=== PATIENT | female | born 1955 | race Caucasian/White ===

== ENCOUNTER 2018-08-17 14:54 | Inpatient (IN) ==
[2018-08-17] MEDS ORDERED: PANTOPRAZOLE 40 MG VIAL IV STA (17:27)
[2018-08-17] MEDS ORDERED: SODIUM CHLORIDE 0.9% 1,000 ML IV STA (17:27)
[2018-08-17 17:53] LABS: Basophils % 0.2 % (0.0-0.8); Hemoglobin 14.1 GM/DL (12.0-16.0); Immature Granulocytes % 0.5 %; Immature Granulocytes Absolute 0.12 #; Lymphocytes # 1.2 10*3/uL (1.4-4.0); Lymphocytes % 5.2 % (21.3-54.2); Mean Corpuscular HGB Conc 32.8 GM/DL (32-36); Mean Corpuscular Hemoglobin 29 PG (27-34); Mean Corpuscular Volume 87.6 FL (87-102); Mean Platelet Volume 9.7 FL (9.6-12.0); Monocytes # 0.9 10*3/uL (0.11-0.8); Monocytes % 4.1 % (1.7-12.7); Neutrophils # 20.3 10*3/uL (1.4-7.4); Platelet Count 281 T/CUMM (130-400); Red Blood Count 4.91 MC/CUMM (3.8-5.5); Red Cell Distribution Width 12.4 % (9.3-17.3); White Blood Count 22.5 T/CUMM (4-12)
[2018-08-17 18:04] LABS: INR 0.9; PT Patient Result 9.6 SECS; Partial Thromboplastin Time 25.7 SECS (0-40)
[2018-08-17 18:13] LABS: Bilirubin,Total 0.8 MG/DL (0.2-1.0); Calcium 9.1 MG/DL (8.5-10.1); Osmolality,Calculated 272.1 MOS/KG (273-304); Potassium 3.9 MMOL/L (3.5-5.1); Total Protein 7.7 G/DL (6.4-8.3)
[2018-08-17 18:26] LABS: Lymphocytes 7 % (20-55); Platelet Estimate Adequate; Segmented Neutrophils 89 % (50-85); Total Cells Counted 100
[2018-08-17 18:56] LABS: Apearance,Urine CLOUDY (Clear); Bacteria,Urine Occasional /HPF (Few); Bilirubin,Urine Negative (Negative); Blood, Urine Small mg/dL (Negative); Glucose,Urine (UA) Negative (Negative); Ketones,Urine 5 mg/dL (Negative); Mucus,Urine Many /LPF (Occasional); Nitrite,Urine Negative (Negative); Protein,Urine Negative; RBC,Urine 6 /HPF (0-4); Squamous Epithelial Cell,Urine Occasional /HPF (0-10); Urine Color Amber (Yellow); Urine Specific Gravity 1.025 (1.001-1.035); Urine Urobilinogen < 2.0 EU/DL (0.2-1.0); WBC,Urine 3 /HPF (0-6)
[2018-08-17] MEDS ORDERED: ONDANSETRON 4 MG/2 ML VIAL IV PRN (20:35)
[2018-08-17] MEDS ORDERED: ACETAMINOPHEN 325 MG TABLET PO PRN (20:35)
[2018-08-17] MEDS ORDERED: NON-FORMULARY MEDICATION (Zolpidem Tartrate [Ambien] 10 MG) PO SCH (21:00)
[2018-08-17] MEDS: EZETIMIBE 10 MG TABLET PO SCH (22:21)
[2018-08-17] MEDS: SODIUM CHLORIDE 0.45% 1,000 ML IV SCH (22:21)
[2018-08-17] MEDS: ZALEPLON 5 MG CAPSULE PO PRN (22:21)
[2018-08-17] MEDS: CLINDAMYCIN INJ 300 MG in PREMIX 1 EACH IV SCH (22:22)
[2018-08-17] MEDS: metroNIDAZOLE INJ 500 MG in PREMIX 1 EACH IV SCH (23:20)
[2018-08-18] MEDS: CLINDAMYCIN INJ 300 MG in PREMIX 1 EACH IV SCH (05:20)
[2018-08-18 05:57] LABS: Basophils % 0.2 % (0.0-0.8); Eosinophils % 0.2 % (0.00-10.9); Hematocrit 38.8 VOL% (35.7-47.0); Hemoglobin 12.4 GM/DL (12.0-16.0); Immature Granulocytes % 0.6 %; Immature Granulocytes Absolute 0.09 #; Lymphocytes # 1.5 10*3/uL (1.4-4.0); Lymphocytes % 10.5 % (21.3-54.2); Mean Corpuscular Hemoglobin 28 PG (27-34); Mean Platelet Volume 9.7 FL (9.6-12.0); Monocytes % 6.7 % (1.7-12.7); Neutrophils # 11.6 10*3/uL (1.4-7.4); Neutrophils % 81.8 % (38.7-73.9); Platelet Count 236 T/CUMM (130-400); Red Blood Count 4.41 MC/CUMM (3.8-5.5); Red Cell Distribution Width 12.5 % (9.3-17.3); White Blood Count 14.2 T/CUMM (4-12)
[2018-08-18 06:14] LABS: Calcium 8.6 MG/DL (8.5-10.1); Osmolality,Calculated 278.4 MOS/KG (273-304); Potassium 3.7 MMOL/L (3.5-5.1)
[2018-08-18] MEDS: metroNIDAZOLE INJ 500 MG in PREMIX 1 EACH IV SCH ×3 (06:39→23:24)
[2018-08-18] MEDS ORDERED: Olopatadine Hcl [Pataday 0.2% Oph Soln] BOTH EYES SCH (09:00)
[2018-08-18] MEDS: PANTOPRAZOLE 40 MG VIAL IV SCH (10:42)
[2018-08-18] MEDS: SODIUM CHLORIDE 0.45% 1,000 ML IV SCH ×3 (10:46→21:20)
[2018-08-18] MEDS ORDERED: LEVOFLOXACIN INJ 500 MG in PREMIX 1 EACH IV SCH (13:00)
[2018-08-18] MEDS: POLYCARBOPHIL 625 MG TABLET PO SCH (15:13)
[2018-08-18] MEDS: MULTIVITAMIN (CENTRUM) TABLET PO SCH (15:13)
[2018-08-18] MEDS: EZETIMIBE 10 MG TABLET PO SCH (23:24)
[2018-08-18] MEDS: ZALEPLON 5 MG CAPSULE PO PRN (23:27)
[2018-08-19] MEDS: metroNIDAZOLE INJ 500 MG in PREMIX 1 EACH IV SCH (06:08)
[2018-08-19] MEDS: SODIUM CHLORIDE 0.45% 1,000 ML IV SCH (07:29)
[2018-08-19 08:19] VITALS: BP 123/66
[2018-08-19] MEDS: PANTOPRAZOLE 40 MG VIAL IV SCH (09:06)
[2018-08-19] MEDS: POLYCARBOPHIL 625 MG TABLET PO SCH (09:06)
[2018-08-19] MEDS: MULTIVITAMIN (CENTRUM) TABLET PO SCH (09:06)
[2018-08-19] MEDS ORDERED: HYDROCORTISONE 25 MG SUPP RECTAL ONE (09:56)
[2018-08-19] MEDS ORDERED: PHENYLEPHRINE 0.25% SUPP RECTAL ONE (10:01)
== END 2018-08-19 11:15 | disposition home or self-care (01) | DRG 392 ==
LOC: N.ED 14:54 → N.EDINP 20:35 → N.3E 21:51
PROVIDERS: ADMIT Internal Medicine; ATTEND Internal Medicine